=== PATIENT | female | born 1930 | race Caucasian/White ===

== ENCOUNTER 2017-09-05 18:54 | Emergency (ER) | payer OTHER ==
[~2017-09-05] VITALS: Ht 165.1 cm; Wt 66.2 kg
--- NOTE | 2017-09-05 18:56 | NUR ---
PT BIBA. TAKEN TO BED 10
[2017-09-05 19:04] VITALS: BP 148/66
--- NOTE | 2017-09-05 19:10 | NUR ---
86/F BIBA ACCOMPANIED BY FAMILY MEMBERS D/T ALOC. FAMILY STATES PATIENT WAS ACTING "WEIRD" WANDERING AROUND, WANTING TO RUN, AND STATES "SHE FEELS FUNNY". PATIENT FAMILY MEMBERS STATES PATIENT REQUESTED TO COME TO THE HOSPITAL. WILL CONTINUE TO MONITOR. PT DENIES N/V/D; SKIN IS PINK/WARM/DRY; AAOX3 WITH EVEN AND GENERALIZED WEAKNESS GAIT; LUNGS CLEAR BL; HR EVEN AND REGULAR; PT DENIES ANY FEVER, CP, SOB, OR COUGH AT THIS TIME; PATIENT STATES PAIN OF 0/10 AT THIS TIME; VSS; PATIENT POSITIONED FOR COMFORT; HOB ELEVATED; BEDRAILS UP X2; BED DOWN. ER MD MADE AWARE OF PT STATUS.
--- NOTE | 2017-09-05 19:40 | NUR ---
Patient discharged with v/s stable. Written and verbal after care instructions given and explained. Patient alert, oriented and verbalized understanding of instructions. [g ED.DCMODE] with [g ED.D/CMODE]. All questions addressed prior to discharge. ID band removed. Patient advised to follow up with PMD. Rx of [ATIVAN] given. Patient educated on indication of medication including possible reaction and side effects. Opportunity to ask questions provided and answered.
[2017-09-05 19:55] VITALS: BP 150/66
== END 2017-09-05 19:40 | disposition home or self-care (01) ==
LOC: MED 18:54
DX: F41.9 Anxiety disorder, unspecified (principal); R03.0 Elevated blood-pressure reading, without diagnosis of hypertension; F03.90 Unspecified dementia, unspecified severity, without behavioral disturbance, psychotic disturbance, mood disturbance, and anxiety; J44.9 Chronic obstructive pulmonary disease, unspecified
CPT/HCPCS: 99284